=== PATIENT | male | born 1950 | race Two or more races ===

== ENCOUNTER 2023-09-06 09:10 | Emergency (ER) | payer BC ==
[~2023-09-06] VITALS: Ht 172.7 cm; Wt 82.3 kg
[~2023-09-06 09:10] MED LIST: AMOX500T86; ATOR10TA OR; DIGO0.1262; GLYB5TAB66; METO25TA36; ROSI2TAB OR; SIMV5TAB14; WARF5INJ PO
[2023-09-06] MEDS ORDERED: VANCOMYCIN 1GM/200ML 200 ML IV ONE (09:30)
[2023-09-06] MEDS ORDERED: MORPHINE SULFATE 4 MG/ML SYR/VIAL IV ONE ×2 (09:30→13:45)
[2023-09-06] MEDS ORDERED: ONDANSETRON HCL 4 MG/2 ML VIAL IV ONE ×2 (09:30→13:45)
[2023-09-06 10:00] VITALS: PULSE 112; RESP 13; O2SAT 92
[2023-09-06] MEDS ORDERED: SODIUM CHLORIDE 0.9% 2,450 ML IV ONE (10:00)
[2023-09-06 10:19] LABS: Hematocrit 41.2 % (41.0-53.0); Hemoglobin 13.7 g/dL (13.5-17.5); Mean Corpuscular Hemoglobin 28.7 pg (28.0-32.0); Mean Corpuscular Hgb Conc. 33.2 g/dL (32.0-36.0); Mean Corpuscular Volume 86.4 fL (80.0-100.0); Red Blood Cells 4.77 10^6/uL (4.5-5.90); Red Cell Distribution Width 15.8 % (11.8-14.3); White Blood Cell 14.7 10^3/uL (4.4-10.8)
[2023-09-06 10:25] LABS: Chloride 94 mmol/L (98-107); Potassium 4.2 mmol/L (3.5-5.1); Sodium 125 mmol/L (136-145)
[2023-09-06 10:26] LABS: Anion Gap 13 (5-15); Calcium 8.5 mg/dL (8.5-10.1); Carbon Dioxide 18 mmol/L (20-30)
[2023-09-06 10:31] LABS: Blood Urea Nitrogen 22 mg/dL (9-23); Glucose 400 mg/dL (74-106)
[2023-09-06 10:39] LABS: Lactic Acid w/Reflex 4.8 mmol/L (0.4-2.0)
[2023-09-06 11:00] LABS: Basophils % (manual) 0 (0.0-2.0); Blast Cells 0; Eosinophils % (manual) 0 (0-7); Metamyelocytes % 0; Myelocytes % 0; Promyelocytes % 0; Reactive Lymphocytes 0
[2023-09-06 11:08] LABS: Urine Epithelial Cast None Seen /hpf (<5)
[2023-09-06 11:29] LABS: Urine Bacteria FEW /hpf (None Seen); Urine Blood 1+ /uL (Negative); Urine Clarity Clear (Clear); Urine Color Yellow (Yellow); Urine Protein, UAD TRACE (Negative); Urine Specific Gravity 1.025 (1.001-1.035); Urine Urobilinogen Normal (Negative); Urine WBC 1 /hpf (0 - 3)
[2023-09-06 13:19] LABS: Band Neutrophils % (manual) 13; Lymphocytes % (manual) 4 (10.0-50.0); Monocytes % (manual) 13 (0-12)
[2023-09-06 13:20] LABS: Anisocytosis Slight; Platelet Estimate Adequate; Tear Drop Cells FEW
[2023-09-06] MEDS ORDERED: PIPERACILLIN-TAZOB 3.375GM 100 ML IV ONE (14:45)
[2023-09-06 15:45] VITALS: BP 105/58; PULSE 139; RESP 34; TEMP 98.3; O2SAT 93
== END 2023-09-06 16:11 | disposition short-term general hospital (02) ==
LOC: ER 09:10
DX: E11.65 Type 2 diabetes mellitus with hyperglycemia (principal); L08.89 Other specified local infections of the skin and subcutaneous tissue; I10 Essential (primary) hypertension; E78.5 Hyperlipidemia, unspecified; M10.9 Gout, unspecified; I25.10 Atherosclerotic heart disease of native coronary artery without angina pectoris; Z98.890 Other specified postprocedural states; Z79.899 Other long term (current) drug therapy
CPT/HCPCS: 36415; 73200; 80048; 81001; 82962; 83605; 85007; 85027; 87040; 96365; 96367; 96375; 96376; 99285; J2270; J2405; J2543; J3370; J7030